=== PATIENT | male | born 1950 ===

== ENCOUNTER 2017-05-20 06:05 | Inpatient (IN) | payer MEDICARE ==
[2017-05-18 11:41] VITALS: BMI 25.0
[2017-05-20] MEDS ORDERED: Propofol 10 mg/ml Inj (20 ML) ONE (07:39)
[2017-05-20] MEDS ORDERED: Midazolam 2 MG/2 ML VIAL ONE (07:39)
[2017-05-20] MEDS ORDERED: Rocuronium 10 mg/ml (5 ml) ONE ×2 (07:39→09:22)
[2017-05-20] MEDS ORDERED: ceFAZolin IV 2 gm in Dextrose 2 GM/50 ML BAG IVPB ONE (08:15)
[2017-05-20] MEDS ORDERED: Mannitol 12.5 gm/50 ml Inj IV ONE (08:21)
[2017-05-20] MEDS ORDERED: Sodium Chloride 0.9% 1,000 ML IV ONE (08:24)
[2017-05-20] MEDS ORDERED: Phenylephrine 10 mg/ml Inj ONE (08:54)
[2017-05-20] MEDS ORDERED: Morphine 4 MG/ML VIAL ONE ×2 (09:14→10:25)
[2017-05-20] MEDS ORDERED: Lactated Ringer's 1,000 ML IV ONE ×2 (10:00→11:00)
[2017-05-20] MEDS ORDERED: Neostigmine Methylsulfate 3mg/3ml Syringe IV ONE (10:29)
[2017-05-20] MEDS ORDERED: Metoprolol 1 mg/ml Inj IVP ONE (10:43)
[2017-05-20] MEDS ORDERED: Bupivacaine HCl 0.5% PF (10 ml) Inj ONE ×2 (10:57)
[2017-05-20] MEDS ORDERED: Morphine Monoject Barrel PCA 1mg/ml IV PRN (11:19)
[2017-05-20] MEDS: HYDROmorphone 0.5 mg/0.5 ml ISec IVP PRN ×2 (11:53→14:05)
[2017-05-20] MEDS ORDERED: Potassium Chl 10 mEq in D5-1/2 10 ML in Dextrose 5%/0.45% NS 1,000 ML IV SCH (12:30)
[2017-05-20] MEDS ORDERED: Potassium Chl 10 mEq in D5-1/2 1,000 ML IV SCH (13:45)
[2017-05-20] MEDS: Potassium Chloride 10 MEQ in Dextrose 5%/0.45% NS 1,000 ML IV SCH (14:15)
[2017-05-20] MEDS: ceFAZolin IV 1 gm in Dextrose 1 GM/50 ML BAG IVPB SCH ×2 (16:25→23:50)
[2017-05-21] MEDS: ceFAZolin IV 1 gm in Dextrose 1 GM/50 ML BAG IVPB SCH ×3 (06:12→21:52)
[2017-05-21] MEDS: Potassium Chloride 10 MEQ in Dextrose 5%/0.45% NS 1,000 ML IV SCH (11:50)
[2017-05-21 12:09] LABS: BASO % 0.2 % (0.0-2.0); EOS # 0.1 K/uL (0.0-0.7); EOS % 1.1 % (0.0-4.0); HEMOGLOBIN 13.2 g/dL (12.0-18.0); LYMPH # 1.5 K/uL (1.0-4.3); MEAN CORPUSCULAR HEMOGLOBIN 29.9 pg (27.0-31.0); MEAN CORPUSCULAR HGB CONC 34.8 g/dL (33.0-37.0); MEAN PLATELET VOLUME 7.2 fL (7.2-11.7); MONO # 0.9 K/uL (0.0-0.8); MONO % 11.7 % (0.0-10.0); NEUT # 5.3 K/uL (1.8-7.0); RBC 4.42 Mil/uL (4.40-5.90); WHITE BLOOD COUNT 7.8 K/uL (4.8-10.8)
[2017-05-21 12:27] LABS: BLOOD UREA NITROGEN 13 mg/dL (9-20); CALCIUM 8.3 mg/dl (8.6-10.4); GFR AFRICAN-AMERICAN > 60; GFR NON-AFRICAN AMERICAN > 60
[2017-05-22] MEDS: ceFAZolin IV 1 gm in Dextrose 1 GM/50 ML BAG IVPB SCH ×3 (04:43→21:39)
[2017-05-22] MEDS: Potassium Chloride 10 MEQ in Dextrose 5%/0.45% NS 1,000 ML IV SCH (06:33)
[2017-05-23] MEDS: Potassium Chloride 10 MEQ in Dextrose 5%/0.45% NS 1,000 ML IV SCH (02:40)
[2017-05-23] MEDS: ceFAZolin IV 1 gm in Dextrose 1 GM/50 ML BAG IVPB SCH ×3 (05:14→21:01)
[2017-05-23 07:40] LABS: BASO % 0.2 % (0.0-2.0); EOS # 0.4 K/uL (0.0-0.7); EOS % 5.2 % (0.0-4.0); HEMOGLOBIN 11.9 g/dL (12.0-18.0); LYMPH # 1.1 K/uL (1.0-4.3); LYMPH % 15.5 % (20.0-40.0); MEAN CELL VOLUME 84.6 fL (80.0-94.0); MEAN CORPUSCULAR HEMOGLOBIN 30.1 pg (27.0-31.0); MEAN CORPUSCULAR HGB CONC 35.6 g/dL (33.0-37.0); MEAN PLATELET VOLUME 7.1 fL (7.2-11.7); MONO # 0.9 K/uL (0.0-0.8); MONO % 12.5 % (0.0-10.0); NEUT # 4.9 K/uL (1.8-7.0); NEUT % 66.6 % (50.0-75.0); NRBC % 0.1 % (0.0-2.0); RBC 3.96 Mil/uL (4.40-5.90); RED CELL DISTRIBUTION WIDTH 13.7 % (11.5-14.5); WHITE BLOOD COUNT 7.3 K/uL (4.8-10.8)
[2017-05-23 08:02] LABS: ALB/GLOB RATIO 1.1 (1.0-2.1); ALBUMIN 3.3 g/dL (3.5-5.0); ALT/SGPT 37 U/L (21-72); AST/SGOT 65 U/L (17-59); BLOOD UREA NITROGEN 13 mg/dL (9-20); CALCIUM 8.3 mg/dl (8.6-10.4); GFR AFRICAN-AMERICAN > 60; GFR NON-AFRICAN AMERICAN > 60
[2017-05-23] MEDS: Oxycodone/Acetaminophen 5/325 mg Tab PO PRN (21:00)
--- NOTE | 2017-05-23 21:26 | PCM.URO ---
Urology Progress Note - Objective Lab Studies: Reviewed (plans: ct,labs, full notes dictated) Lab Results Last 24 Hours: Laboratory Results - last 24 hr 05/23/17 05/23/17 05/23/17 07:24 07:24 20:06 WBC 7.3 RBC 3.96 L Hgb 11.9 L Hct 33.5 L MCV 84.6 MCH 30.1 MCHC 35.6 RDW 13.7 Plt Count 215 MPV 7.1 L Neut % (Auto) 66.6 Lymph % (Auto) 15.5 L [place] % (Auto) 12.5 H Eos % (Auto) 5.2 H Baso % (Auto) 0.2 Neut # 4.9 Lymph # 1.1 [place] # 0.9 H Eos # 0.4 Baso # 0.0 Sodium 131 L Potassium 3.9 Chloride 96 L Carbon Dioxide 32 H Anion Gap 7 L BUN 13 Creatinine 0.9 Est GFR ( Amer) > 60 Est GFR (Non-Af Amer) > 60 POC Glucose (mg/dL) 101 Random Glucose 104 Calcium 8.3 L Total Bilirubin 1.2 AST 65 H ALT 37 Alkaline Phosphatase 64 Total Protein 6.4 Albumin 3.3 L Globulin 3.1 Albumin/Globulin Ratio 1.1 Intake & Output: Intake & Output 05/23/17 05/23/17 05/24/17 06:59 18:59 06:59 Intake Total 650 450 Output Total 3225 1025 Balance -6198 -468 Intake: Intake, IV Amount 50 50 Left Hand 50 50 Oral 600 400 Output: Drainage 25 25 Left Back 10 25 Left Lateral Abdomen 15 Urine 3200 1000 Urethral (Borges) 3200 1000 Vital Signs: Vital Signs - 24 hr 05/22/17 05/23/17 05/23/17 23:15 07:00 15:18 Temperature 99 F 99.5 F 98.7 F Pulse Rate 98 H 95 H 99 H Respiratory 20 20 20 Rate Blood Pressure 113/74 122/75 119/75 O2 Sat by Pulse 96 97 95 Oximetry
[2017-05-23 21:52] LABS: BASO % 0.7 % (0.0-2.0); EOS # 0.5 K/uL (0.0-0.7); EOS % 7.1 % (0.0-4.0); LYMPH # 1.4 K/uL (1.0-4.3); LYMPH % 20.6 % (20.0-40.0); MEAN CELL VOLUME 84.9 fL (80.0-94.0); MEAN CORPUSCULAR HEMOGLOBIN 29.1 pg (27.0-31.0); MEAN CORPUSCULAR HGB CONC 34.3 g/dL (33.0-37.0); MEAN PLATELET VOLUME 7.1 fL (7.2-11.7); MONO # 0.9 K/uL (0.0-0.8); MONO % 13.1 % (0.0-10.0); NEUT # 3.9 K/uL (1.8-7.0); NEUT % 58.5 % (50.0-75.0); RBC 4.12 Mil/uL (4.40-5.90); RED CELL DISTRIBUTION WIDTH 13.4 % (11.5-14.5); WHITE BLOOD COUNT 6.7 K/uL (4.8-10.8)
[2017-05-23 22:14] LABS: ALBUMIN 3.4 g/dL (3.5-5.0); ALT/SGPT 53 U/L (21-72); AST/SGOT 68 U/L (17-59); BLOOD UREA NITROGEN 16 mg/dL (9-20); CALCIUM 8.2 mg/dl (8.6-10.4); GFR AFRICAN-AMERICAN > 60; GFR NON-AFRICAN AMERICAN > 60
--- NOTE | 2017-05-23 23:39 | CT ---
EXAM: CT Abdomen and Pelvis Without Intravenous Contrast EXAM DATE/TIME: 05/23/2017 9:27 PM CLINICAL HISTORY: 66 years old, male; Pain; Abdominal pain; Generalized; Prior surgery; Surgery date: Post-operative (0-2 days); Additional info: Post op partial nephrectomy TECHNIQUE: Axial computed tomography images of the abdomen and pelvis without intravenous contrast. All CT scans at this facility use one or more dose reduction techniques, viz.: automated exposure control; ma/kV adjustment per patient size (including targeted exams where dose is matched to indication; i.e. head); or iterative reconstruction technique. Coronal and sagittal reformatted images were created and reviewed. COMPARISON: There are no prior studies for comparison. FINDINGS: Lower thorax: Heart size is normal. There are occasional coronary artery calcifications. There is small calcified mediastinal and hilar nodes. There is a small left effusion. There is no definite right effusion. There is a granuloma at the right base. There is basilar airspace disease left greater than right. There is small hiatal hernia. ABDOMEN: Liver: There is fatty infiltration of the liver. Gallbladder and bile ducts: unremarkable Pancreas: Pancreas is partially obscured by bowel gas. Spleen: unremarkable Adrenals: unremarkable Kidneys and ureters: Right kidney and ureter are unremarkable. There are postsurgical changes partial left upper pole nephrectomy. There is a fluid and air collection in the upper pole. There is edema and air in the perirenal spaces. There is a surgical drain in the left flank.There is no pelvocaliectasis or ureterectasis. Stomach and bowel: Stomach is partially distended with fluid and air. Rotation is normal. Small bowel is mildly distended with fluid and air. Ileocecal region is unremarkable. Terminal ileum is unremarkable. There is moderate stool in the colon. Appendix: See stomach and bowel PELVIS: Bladder: Bladder is empty. There is a Borges catheter. There is air in the bladder. Reproductive: Prostate is mildly enlarged. Seminal vesicles are unremarkable. ABDOMEN and PELVIS: Intraperitoneal space: There is no free air in the abdomen. There is no free fluid in the abdomen or pelvis. Bones/joints: There are degenerative changes in the osseus structures. Soft tissues: There are multiple skin alexander in the left flank. There is edema in the left flank/abdominal wall. Vasculature: There are vascular calcifications. Lymph nodes: There is no pathologic adenopathy. IMPRESSION: Postsurgical changes in the left flank and left retroperitoneum consistent with history of partial left nephrectomy; left pleural effusion and bibasilar atelectasis; prior granulomatous disease; fatty liver; probable ileus, no obstruction Additional nonemergent findings as described above.
[2017-05-24] MEDS: ceFAZolin IV 1 gm in Dextrose 1 GM/50 ML BAG IVPB SCH ×3 (05:45→21:17)
[2017-05-24 08:51] LABS: BASO % 0.4 % (0.0-2.0); EOS # 0.4 K/uL (0.0-0.7); EOS % 6.3 % (0.0-4.0); LYMPH % 18.2 % (20.0-40.0); MEAN CELL VOLUME 85.2 fL (80.0-94.0); MEAN CORPUSCULAR HEMOGLOBIN 29.3 pg (27.0-31.0); MEAN CORPUSCULAR HGB CONC 34.4 g/dL (33.0-37.0); MEAN PLATELET VOLUME 7.1 fL (7.2-11.7); MONO # 0.6 K/uL (0.0-0.8); MONO % 10.3 % (0.0-10.0); NEUT # 3.7 K/uL (1.8-7.0); NEUT % 64.8 % (50.0-75.0); RBC 4.44 Mil/uL (4.40-5.90); RED CELL DISTRIBUTION WIDTH 13.5 % (11.5-14.5); WHITE BLOOD COUNT 5.8 K/uL (4.8-10.8)
[2017-05-24] MEDS: Oxycodone/Acetaminophen 5/325 mg Tab PO PRN ×3 (09:26→21:17)
[2017-05-25] MEDS: Oxycodone/Acetaminophen 5/325 mg Tab PO PRN ×2 (03:35→09:24)
[2017-05-25] MEDS: ceFAZolin IV 1 gm in Dextrose 1 GM/50 ML BAG IVPB SCH ×2 (04:54→12:27)
[2017-05-25 07:19] LABS: BASO % 0.1 % (0.0-2.0); EOS # 0.4 K/uL (0.0-0.7); EOS % 7.5 % (0.0-4.0); HEMOGLOBIN 12.3 g/dL (12.0-18.0); LYMPH # 1.2 K/uL (1.0-4.3); LYMPH % 21.1 % (20.0-40.0); MEAN CORPUSCULAR HEMOGLOBIN 28.9 pg (27.0-31.0); MEAN PLATELET VOLUME 6.9 fL (7.2-11.7); MONO # 0.7 K/uL (0.0-0.8); MONO % 12.5 % (0.0-10.0); NEUT # 3.3 K/uL (1.8-7.0); NEUT % 58.8 % (50.0-75.0); NRBC % 0.1 % (0.0-2.0); RBC 4.24 Mil/uL (4.40-5.90); RED CELL DISTRIBUTION WIDTH 13.6 % (11.5-14.5); WHITE BLOOD COUNT 5.5 K/uL (4.8-10.8)
[2017-05-25 08:18] LABS: ALB/GLOB RATIO 1.1 (1.0-2.1); ALBUMIN 3.4 g/dL (3.5-5.0); ALT/SGPT 45 U/L (21-72); AST/SGOT 47 U/L (17-59); BLOOD UREA NITROGEN 18 mg/dL (9-20); CALCIUM 8.3 mg/dl (8.6-10.4); GFR AFRICAN-AMERICAN > 60; GFR NON-AFRICAN AMERICAN > 60
[2017-05-25] MEDS ORDERED: Oxycodone/Acetaminophen 5/325 mg Tab PO ONE ×2 (15:46→22:58)
[2017-05-26 07:49] VITALS: TEMP 98
--- NOTE | 2017-05-26 15:44 | CP.PCM.PN ---
Subjective - Date & Time of Evaluation Date of Evaluation: 05/26/17 Time of Evaluation: 13:35 - Subjective Subjective: [employer] TRAINER NOTES patient seen today, denies any complaints f/c in place draining, no blood noted Objective - Vital Signs/Intake and Output Vital Signs (last 24 hours): Temp Pulse Resp BP Pulse Ox 98 F 110 H 20 97/64 L 96 05/26/17 07:00 05/26/17 07:00 05/26/17 07:00 05/26/17 07:00 05/26/17 07:00 Intake and Output: 05/26/17 05/26/17 06:59 18:59 Intake Total 150 Output Total 100 650 Balance 50 -650 - Medications Medications: Current Medications Famotidine (Pepcid) 20 mg IVP DAILY [facility] Last Admin: 05/26/17 09:57 Dose: 20 mg Phenazopyridine HCl (Pyridium) 200 mg PO Q8 [facility] Last Admin: 05/26/17 14:11 Dose: 200 mg Tamsulosin HCl (Flomax) 0.4 mg PO DAILY [facility] Last Admin: 05/26/17 09:57 Dose: 0.4 mg - Labs Labs: 05/25/17 06:47 05/25/17 06:47 Assessment and Plan - Assessment and Plan (Free Text) Assessment: A/P 66 yr old male s/p Nephrectomy POD# 6 f/c re inserted secondary to urinary retention RN tough patient how to manage f/c with leg bag and emptying d/w Dr. Cm,cleared for discharge home today and f/u with Dr. Cm office on Thursday at 1130 am discharge plan discussed with patient via power generation technician , who understands and agrees with plan
[2017-05-26 15:59] VITALS: BP 108/71; PULSE 78; RESP 18; O2SAT 99
--- NOTE | 2017-06-29 07:01 | HP ---
REASON FOR ADMISSION: Treatment for a renal mass. HISTORY OF PRESENT ILLNESS: Mr. Gabriele Vaughn is a very pleasant gentleman who is here for a partial nephrectomy open on the left side. Mr. Gabriele Vaughn is a very pleasant gentleman who presented quite some time ago. We discussed various options. He presented with renal mass. We have done multiple workups and imaging. We even had a renal biopsy with and it showed renal cell carcinoma. My recommendation to the patient was to have a robotic partial nephrectomy. I have discussed and tried ringing him for appointments with several doctors. But for various reasons including insurance, he has not been able to even make those appointments or make those appointments and have surgery, and at this point, this has been going on for quite sometime. Then I offered the patient, what I am able to help him is with an open partial nephrectomy for which he has been admitted now. I discussed with the patient risks, benefits, and treatment alternatives. I discussed with him from a cancer standpoint, the plan is for surgical cure. I explained to the patient the risks of recurrence. I discussed port site tumors. I discussed with him very well. Still my recommendation is to have a robotic procedure. However, the patient was not able to get an appointment satisfactorily in a significant amount of time, I have known the patient now for quite sometime through the chart notes. I have discussed all those options at length. He is here today for an open partial nephrectomy. In preparation for today, I have also arranged to have another urologist, a Board Certified urologist to help me, Dr. Charisse Cm. This procedure should not be done single hand. After discussion with the patient about various options, he is being admitted now for a partial open nephrectomy. PAST MEDICAL AND SURGICAL HISTORY: As listed on the chart. He also has medical clearance in preparation for today. REVIEW OF SYSTEMS: No weight loss, chest pain, shortness of breath or the like. MEDICATIONS: See the chart. ALLERGIES: NONE. PHYSICAL EXAMINATION: GENERAL: A well-nourished male, in no apparent distress. VITAL SIGNS: Within normal limits. HEENT: Normocephalic, atraumatic. NECK: No lymphadenopathy. LUNGS: Clear. HEART: Normal S1, S2. ABDOMEN: Overall soft. There are no palpable masses. No CVA tenderness. GENITOURINARY: Normal phallus without discharge. No testicular masses. RECTAL EXAM: Showing a prostate that is smooth. LABORATORY DATA: See chart. CT scan all noted. Pathology and biopsy also noted with renal cell carcinoma. DIAGNOSIS: Left renal mass. ASSESSMENT AND PLAN: A very pleasant gentleman. We discussed options, risks, benefits and alternatives. We discussed open surgery, robotic surgery. He is here today for an open partial nephrectomy. I discussed with the patient the risks of associated bleeding, urine leaking, etc. See the listed operative note. After discussing options with the patient, he is here now. We are going to plan to proceed. PLAN: 1. Antibiotic prophylaxis. 2. Open partial nephrectomy. Phi Cm MD
--- NOTE | 2017-06-29 07:43 | OP ---
PROCEDURE DATE: 05/20/2017 PREOPERATIVE DIAGNOSES: Left renal mass and hematuria. POSTOPERATIVE DIAGNOSES: Left renal mass and hematuria. PROCEDURE: Opened partial left nephrectomy. There were no complications. Blood loss is less than 50 mL. There is a drain, left in place (there is no ureteral stenting). See the details in the body of the operative report. SURGEON: Phi Cm MD CLIENT MANAGER: Charisse Cm MD This is a repeat of the dictation. COMPLICATIONS: There were no complications. The urology operative findings is that there is a left renal cell carcinoma, intraoperative biopsies confirmed, and subsequently, all margins were negative. At the termination of the procedure, we have a good closure, no bleeding. We have a drain, we have a Borges catheter. I just want to mention also that in preparation for today's surgery, I have read multiple surgical atlases in preparation. Reviewed my [employer] books anatomy, etc. I have also made arrangements to have a second board certified urologic surgeon for such a difficult procedure. I have arranged Dr. Charisse Cm to be here. Prior to the procedure, I also explained to the patient at great length, risks, benefits, treatment, alternatives, specifically the risk of curing the cancer, I discussed with the patient, risks of partial nephrectomy versus complete nephrectomy, the benefits of partial nephrectomy have also been explained. We discussed the possibility of an open operation versus robotic operation. After discussing all those risks and benefits with the patient, he is now for an open Again, I have sent the patient to several different doctors, provided different names, and after months after the patient not being able to get taken care of, the patient is here now for the procedure. We did arrange for the biopsy of the renal cell carcinoma, biopsy proven renal cell carcinoma, and in his otherwise general health status, we certainly recommended, removal option. Now, we see him for the above-listed procedure. went extremely well. We had prepared ourselves in preparation for today's procedure with the possibility for clamping renal artery. See the body of the report. With available medication and also with ice etc., partial and not really even enters into the collecting system. PROCEDURE IN DETAIL: After obtaining informed consent, the patient was placed on the operating table. Routine monitor was placed. Time-out was called to confirm the patient positioning, etc. In this case, we did a flank position with a flank incision. We had the upper extremity on lens and then the knee with pillows provided. We also placed an axillary roll to protect his nerves. We also prepped the patient very carefully. Carefully, gently had a whole assisting team to provide proper positioning. We the table. We then palpated anatomy, felt the rib, and went below the subcostal. We carried down the underlying incision, carefully gently putting the muscles below. Once we did this, we stayed out of the peritoneal cavity, sweeping it off in a flow gentle fashion and isolating it, feeling the kidney. We could actually feel the kidney very nicely. Once we did this, we freed the kidney both posteriorly, anteriorly, superiorly. Once we had dissected up the kidney gently carefully, we actually . We then worked our way towards the hilum. We could palpate the artery vein, and we provided spacing for placing a vascular clamp in a region without clamping it down, just in case, we will run into bleeding. Once we had dissected out the kidney, we could actually palpate the mass sitting on the superior portion of the upper pole of the kidney. We removed this slowly, gently carefully. I sent off the original pathology. We took some margins and then we went further margins to make sure that we were completely clear of any tumor. We actually cauterized the sides. Again, we were really not even in the collecting system. It is all relatively superficial. The mass corresponds well with the CAT scan with reactions available which we have a taken a look at prior to beginning of the procedure. At this point, we provided closure sutures using a wedge to provide a little bit of tamponade. We inspected closely, essentially no bleeding to be noted. We now will get ready for our closure. We irrigated the wound. It looks good. We confirmed that there is no air leaking. We closed in layers. We provided alexander to the skin and dry sterile dressing on top. The patient slipped back to his original position. As mentioned again, blood loss minimum. The patient tolerated the procedure well without complication. Drain inserted and secured to the skin. ADDENDUM: Again, we have spoken to the pathologist. We got the final pathology pending but the margins are noted to be all negative. The patient was brought to the recovery room in stable condition, having tolerated the procedure well without complications. Phi Cm MD
--- NOTE | 2017-06-29 09:26 | DS ---
DATE: 05/26/2017 See the history and physical. See the operative note. See the progress note. He is a very pleasant gentleman. He underwent open partial nephrectomy. The procedure went very well. Postop, the patient was monitored closely and when he is discharged home now he is in stable condition, no bleeding. No difficulty breathing. No fevers. Vitals signs are within normal limits throughout the hospital course. He recovered well. Minimum amount of analgesics, aid of regular diet, no fevers. At the time discharge, stable home. The patient has gone with an incentive spirometer, analgesics, and then follow up in the office. I have explained to the patient we were awaiting the final pathology. At the time of discharge, stable home with the plan for outpatient followup. Thank you to all the consultants throughout the procedure. Phi Cm MD
== END 2017-05-26 17:12 | disposition home or self-care (01) | DRG 658 ==
LOC: C.9S 06:05 → C.6T 21:20
PROVIDERS: ADMIT Urology; ATTEND Urology
PROC: 0TB10ZZ Excision of Left Kidney, Open Approach (ICD-10-PCS; principal; 2017-05-20 08:24)
DX: C64.2 Malignant neoplasm of left kidney, except renal pelvis (principal); R31.9 Hematuria, unspecified